=== PATIENT | male | born 1960 ===

== ENCOUNTER 2023-11-01 14:25 | Outpatient (AMB) | payer OTHER, SELFPAY ==
--- NOTE | 2023-11-01 15:01 | HO.NEPHOV_ITS ---
Vital Signs 11/01/23 15:04 Height 6 ft Weight 191 lb 2 oz BMI 25.9 BP 130/80 Blood Pressure Location Rt brachial Position Sitting Pulse 44 L Pulse Source Pulse Oximeter Pulse Oximetry (%) 97 Oxygen Delivery Method Room Air Intake Visit Reasons: CKD/ LVM News Correspondent Required: No Accompanied by: Self / Same As Patient Allergies No Known Allergies Allergy (Verified 11/01/23 15:08) HPI Comments Details: I had the privilege of seeing Curt in follow-up of his hypertension. He checks his blood pressure at home and has been at goal. He does not have any palpitation, syncope, orthostatic symptoms, headache, visual disturbances, chest pain, shortness of breath, paroxysmal nocturnal dyspnea, orthopnea, pedal edema. He does not take excessive salt in the diet and avoid nonsteroidal anti- inflammatory medications. He tries to maintain good hydration. He did not have any new complaints at the time of this office visit. [facility] Medical History (Updated 11/01/23 @ 15:15 by Gurwinder Odell MD) Hypertension Social History (Updated 11/01/23 @ 15:08 by Karina Hough MA) Alcohol intake: never Patient Tobacco Use Status: Never used Tobacco Review of Systems Const All systems reviewed & are unremarkable except as noted in HPI and below Physical Exam Vital Signs: Last Vital Signs Pulse 44 L 11/01/23 15:04 BP 130/80 11/01/23 15:04 Pulse Ox 97 11/01/23 15:04 Oxygen Delivery Method Room Air 11/01/23 15:04 BMI result Body Mass Index 25.9 Const General: comfortable and no acute distress Orientation/consciousness: patient oriented x3 HEENT Head: Yes normocephalic Mouth: Normal oral and palatal mucosa present Eyes EOM: EOMs intact bilaterally Neck Neck: Yes supple Resp Auscultation: clear to auscultation bilaterally Cardio Jugular venous distension: no JVD Rate: regular rate GI Palpation (GI): Soft to palpation Auscultation: normal bowel sounds General: Yes no CVA tenderness Back/Spine/Pelvis Back: no CVA tenderness Skin General skin exam: no rashes or lesions noted Neuro General: patient oriented x3 and moves all extremities Extrem General: Yes no pedal edema Results Reviewed Nephrology Results: No Data to Display Assessment & Plan Assessment & Plan (1) Hypertension: Code(s): I10 - Essential (primary) hypertension Category: Medical Qualifiers: Hypertension type: primary hypertension Qualified Code(s): I10 - Essential (primary) hypertension Plan Curt has longstanding hypertension. His blood pressure is very well controlled on the current dosage of Atenolol and Chlorthalidone. Has no proteinuria, LVH, retinopathy or renal dysfunction. He does not consume excessive sodium in the diet and avoids nonsteroidal anti-inflammatories. He is active and maintains good hydration. He has no history of any cardiac dysfunction. He is compliant with his medications. His electrolytes have been acceptable. I did not make any medication changes today. Follow-up lab work ordered and follow-up appointment given. Answered all questions. Orders: Orders Creatinine 11/01/23 I10 - Essential (primary) hypertension Blood Urea Nitrogen 11/01/23 I10 - Essential (primary) hypertension Electrolytes 11/01/23 I10 - Essential (primary) hypertension Coding Level of Care Code Est Pt Level 4 (05241) Diagnoses Primary hypertension I10 Hypertension type: primary hypertension
[2023-11-01 15:04] VITALS: BP 130/80; PULSE 44; O2SAT 97; BMI 25.9
== END 2023-11-01 15:27 | disposition home or self-care (01) ==
PROVIDERS: PCP Internal Medicine; Visit Provider Internal Medicine Nephrology
DX: I10 Essential (primary) hypertension (principal)
CPT/HCPCS: 99214

== ENCOUNTER → 2023-11-01 14:25 | Outpatient (BNVA) | payer OTHER, SELFPAY | PROVIDERS: PCP Internal Medicine; Visit Provider Internal Medicine Nephrology ==

== ENCOUNTER 2024-08-21 14:54 | Outpatient (AMB) | payer MEDICARE, MEDICAID, SELFPAY ==
--- NOTE | 2024-08-21 14:56 | HO.NEPHOV ---
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 He checks his blood pressure at home and has been at goal. He does not have any palpitation, syncope, orthostatic symptoms, headache, visual disturbances, chest pain, shortness of breath, paroxysmal nocturnal dyspnea, orthopnea, pedal edema. He does not take excessive salt in the diet and avoid nonsteroidal anti-inflammatory medications. He tries to maintain good hydration. His BP has been labile. He did not have any new complaints at the time of this office visit. [facility] Medical History (Updated 11/01/23 @ 15:15 by Gurwinder Odell MD) Hypertension Social History Alcohol intake: never Patient Tobacco Use Status: Never used Tobacco Review of Systems Const All systems reviewed & are unremarkable except as noted in HPI and below Physical Exam Vital Signs: Last Vital Signs Pulse 82 08/21/24 15:01 BP 162/90 H 08/21/24 15:01 Pulse Ox 98 08/21/24 15:01 Oxygen Delivery Method Room Air 08/21/24 15:01 BMI result Body Mass Index 26.0 Const General: comfortable and no acute distress Orientation/consciousness: patient oriented x3 HEENT Head: Yes normocephalic Mouth: Normal oral and palatal mucosa present Eyes EOM: EOMs intact bilaterally Neck Neck: Yes supple Resp Auscultation: clear to auscultation bilaterally Cardio Jugular venous distension: no JVD Rate: regular rate GI Palpation (GI): Soft to palpation Auscultation: normal bowel sounds Skin General skin exam: no rashes or lesions noted Neuro General: patient oriented x3 and moves all extremities Extrem General: Yes no pedal edema Results Reviewed Nephrology Results: No Data to Display Assessment & Plan Assessment & Plan (1) Hypertension: Code(s): I10 - Essential (primary) hypertension Category: Medical Qualifiers: Hypertension type: primary hypertension Qualified Code(s): I10 - Essential (primary) hypertension Plan Curt has longstanding hypertension. His blood pressure is labile on Atenolol and Chlorthalidone. Has no proteinuria, LVH, retinopathy or renal dysfunction. He does not consume excessive sodium in the diet and avoids nonsteroidal anti-inflammatories. He is active and maintains good hydration. He has no history of any cardiac dysfunction. He is compliant with his medications. His electrolytes have been acceptable. He is on K replacement. I asked him to take Atenolol 75 mg daily to keep his BP at goal after watching BP at home for a few more weeks. I did not make any medication changes today. Follow-up lab work ordered and follow-up appointment given. Answered all questions Coding Level of Care Code Est Pt Level 4 (75480) Diagnoses Primary hypertension I10 Hypertension type: primary hypertension
[2024-08-21 15:01] VITALS: BP 162/90; PULSE 82; O2SAT 98; BMI 26.0
--- OUTSIDE RECORDS SUMMARY | 2024-08-21 18:10 | XMS_ITS | Clinical Summary ---
Author Organization [facility] Address [address] [place] [address] Phone Care Team Providers Care Clean Out Driller Helper Name Role Phone Rachelle Mccord MD Primary Care Pr ovider Allergies No known active allergies Medications atenolol (TENORMIN) 50 MG tablet Take 1 tablet by mouth 1 (one) time each day Active chlorthalidone (HYGROTON) 25 MG tablet Take 1 tablet by mouth 1 (one) time each day Active Active Problems Problem Noted Date Diagnosed Date Essential hypertension 10/10/2020 Family History Relation Status Comments Father Mother Social History Tobacco Use Types Packs/Day Years Used Date Smoking Tobacco: Never Smokeless Tobacco: Never Tobacco Cessation:Counseling Given: Not Answered Alcohol Use Standard Drinks/Week Comments No 0 (1 standard drink = 0.6 oz pur e alcohol) Sex and Gender Information Value Date Recorded Sex Assigned at Not on file Legal Sex Male 4:49 PM EST Gender Identity Not on file Sexual Orientation Not on file Last Filed Vital Signs Vital Sign Reading Time Taken Comments Blood Pressure 130/70 11/04/2022 3:54 PM EDT Pulse 72 11/04/2022 3:54 PM EDT Temperature - - Respiratory Rate - - Oxygen Saturation 99% 10/10/2020 3:56 PM EDT Inhaled Oxygen Concentration - - Weight 85 kg (187 lb 6.4 oz) 11/04/2022 3:54 PM EDT Height 182.9 cm (6') 01/15/2020 12:00 PM EDT Body Mass Index 25.42 01/15/2020 12:00 PM EDT Plan of Treatment Health Maintenance Due Date Last Done Comments Pneumococcal Vaccine: 50+ Ye ars (1 of 2 - PCV) 1977 Colorectal Cancer Screening: Annual FOBT 11/03/2007 Colorectal Cancer Screening: Colonoscopy 11/03/2007 Colorectal Cancer Screening: Sigmoidoscopy 11/03/2007 Influenza Vaccine (Season Ended) 2025 Hepatitis B Vaccine Aged Out No longe r eligible based on patient's age to complete this topic Insurance Care Teams Clean Out Driller Helper Relationship Specialty Start Date End Date Rachelle Mccord MD PCP - General 05/19/20
--- OUTSIDE RECORDS SUMMARY | 2024-08-21 18:10 | XMS_ITS | Clinical Summary ---
Author Organization [facility] [address] Address [address] [place] [address] Phone Care Team Providers Care School Occupational Therapist Name Role Phone Rachelle Mccord MD Primary Care Prov ider Allergies No known active allergies Medications omega 3-fhk-gvt-fish oil (Fish OiL) 1,200 (144-216) mg capsule Take by mouth 1 (one) time each day. Active chlorthalidone (HYGROTON) 25 mg tabletIndication s:Essential (primary) hypertension TAKE 1 TABLET BY MOUTH EVERY DAY 90 tablet 1 5 Active atenoloL (TENORMIN) 50 mg tabletIndication s:Essential (primary) hypertension TAKE 1 TABLET BY MOUTH EVERY DAY 90 tablet 1 5 Active KLOR-CON M10 10 mEq CR tablet TAKE 1 TABLET BY MOUTH 1 TIME EACH DAY. 90 tablet 5 Active atenoloL (TENORMIN) 50 mg tabletIndication s:Essential (primary) hypertension TAKE 1 TABLET BY MOUTH EVERY DAY 90 tablet 5 025 Discontinued chlorthalidone (HYGROTON) 25 mg tabletIndication s:Essential (primary) hypertension TAKE 1 TABLET BY MOUTH EVERY DAY 90 tablet 5 025 Discontinued potassium chloride (KLOR-CON M10) 10 mEq CR tablet Take 1 tablet (10 mEq total) by mouth 1 (one) time each day. 30 each 1 5 025 Discontinued Active Problems Problem Noted Date Diagnosed Date Hyperlipidemia 09/23/2021 Overview (05/23/2024): ASCVD 16.8% on 09/23/2021 Chronic renal insufficiency, stage 1 06/30/2020 Essential hypertension 11/15/2016 Encounters Date Type Department Care Team Description 07/03/2024 3:45 PM EST Office Visit Adult [address] [phone] Efrem Conklin PA Essential hypertension (Primary Dx); Mixed hyperlipidemia; History of bilateral cataract extraction 07/03/2024 Telephone Adult [address] [phone] Rachelle Honeycutt MD Request For Order(s) 06/05/[address] [phone] Rachelle Honeycutt MD Pre-op Notes 06/04/2024 3:15 PM EST Consult [address] [phone] Efrem Conklin PA Cataract of both eyes, unspecified cataract type (Primary Dx); Chronic renal insufficiency, stage 1; Essential hypertension 05/29/2024 Telephone Adult [address] [phone] Rachelle Honeycutt MD Pre-operative Clearance from Last 3 Months Immunizations Name Administration Dates Next Due Influenza Quadravalent, MDCK , 0.5ml, preservative free (Flucelvax) 6mo and older 04/25/2022 Influenza trivalent, 0.5mL ( Fluzone High-dose) 65yo and older 06/10/2024 Pfizer (ages 12 & older) [place] S-CoV-2 COVID-19, mRNA, LNP-S, betsey-sucrose, preservative free 11/07/2021 Pfizer SARS-CoV-2 COVID-19, mRNA, LNP-S, preservative free 11/07/2021 Tdap Tetanus diptheria acell ular pertussis (Boostrix; Adacel) 7yo and older 11/04/2017 Zoster recombinant (Shingrix) 19yo and older 07/2023,03/11/2023 Surgical History Surgery Date Site/Laterality Comments OTHER SURGICAL HISTORY PROCEDURE: DENIES PREVIOUS SURGERY Medical History Medical History Date Comments Essential hypertension 11/15/2016 DX:Essent ial hypertension Hyperlipidemia 09/23/2021 DX:Hyperlipidemi a; COMMENT: ASCVD 16.8% on 09/23/2021 Family History Medical History Relation Name Comments Anemia Mother Relation Name Status Comments Father 80. never went to the doctor. unexpectedly one morning Maternal Grandfather Maternal Grandmother Mother Paternal Grandfather Paternal Grandmother Sister 1 Alive Sister 2 Alive Social History Tobacco Use Types Packs/Day Years Used Date Smoking Tobacco: Never Smokeless Tobacco: Never Tobacco Cessation:Counseling Given: Not Answered Alcohol Use Standard Drinks/Week Comments Yes 0 (1 standard drink = 0.6 oz pur e alcohol) Sex and Gender Information Value Date Recorded Sex Assigned at Not on file Legal Sex Male 6:05 PM EST Gender Identity Not on file Sexual Orientation Not on file Obstetrics History Last Filed Vital Signs Vital Sign Reading Time Taken Comments Blood Pressure 153/77 07/03/2024 3:41 PM EST Pulse 76 07/03/2024 3:41 PM EST Temperature 37 ??C (98.6 ??F) 07/03/2024 3:41 PM EST Respiratory Rate - - Oxygen Saturation - - Inhaled Oxygen Concentration - - Weight 85.7 kg (189 lb) 07/03/2024 3:41 PM EST Height 182.9 cm (6') 07/03/2024 3:41 PM EST Body Mass Index 25.63 07/03/2024 3:41 PM EST Plan of Treatment Upcoming Encounters Date Type Department Care Team (Late st Contact Info) Description 08/31/2024 2:30 PM EDT Office Visit Adult Medicine [facility] [address] [place] [address] Efrem Conklin PA [address] [place] [address] Health Maintenance Due Date Last Done Comments Pneumococcal Vaccine: 50+ Years (1 of 1 - PCV) 2008 Colorectal Cancer Screening: Colonoscopy 04/10/2022 Depression Screening 04/10/2022 Hepatitis C Screening 04/10/2022 Medicare Annual Wellness Visit 04/10/2022 Social Influencers of Health Screening 04/10/2022 Falls Risk Assessment 11/03/2023 Hypertension/CHF/CAD Annual BMP Blood Test 07/20/2025 07/20/2024, 07/05/2024, 04/27/2023 DTaP,Tdap,and Td Vaccines (2 - Td or Tdap) 11/05/2027 11/04/2017 Cholesterol Screening (Lipid Panel) 07/05/2029 07/05/2024, 10/27/2022 RSV Immunization Adult Patients (1 - 1-dose 75+ series) 2033 Zoster Vaccines Completed 05/11/2023, 03/11/2023 COVID-19 Vaccine Completed 06/10/2024, , 11/07/2021, Additional history exists Influenza Vaccine Completed 06/10/2024, 04/25/2022 HIB Vaccines Aged Out No longer eligi ble based on patient's age to complete this topic HPV Vaccines Aged Out No longer eligi ble based on patient's age to complete this topic Hepatitis A Vaccines Aged Out No long er eligible based on patient's age to complete this topic Hepatitis B Vaccines Aged Out No long er eligible based on patient's age to complete this topic IPV Vaccines Aged Out No longer eligi ble based on patient's age to complete this topic MMR Vaccines Aged Out No longer eligi ble based on patient's age to complete this topic Meningococcal ACWY Vaccine Aged Out N o longer eligible based on patient's age to complete this topic Meningococcal B Vaccine Aged Out No l onger eligible based on patient's age to complete this topic Pneumococcal Vaccine: Pediatrics (0 to 5 Years) and At-Risk Patients (6 to 64 Years) Aged Out No longer eligible based on patient's age to complete this topic RSV Immunization Patients Under 20 months Aged Out No longer eligible based on patient's age to complete this topic Varicella Vaccines Aged Out No longer eligible based on patient's age to complete this topic Procedures Procedure Name Priority Date/Time Associated Diagnosis Comments RENAL FUNCTION PANEL Routine 07/20/2024 12:18 PM EDT Essential hypertension COMPREHENSIVE METABOLIC PANEL Routine 07/05/2024 9:53 AM EST Mixed hyperlipidemia Essential hypertension LIPID PANEL WITH REFLEX TO DIRECT LDL Routine 07/05/2024 9:53 AM EST Mixed hyperlipidemia Essential hypertension from Last 3 Months Results * (ABNORMAL) Renal function panel (07/20/2024 12:18 PM EDT) Sodium 133 133 - 145 mmol/L LAB CHEMISTRY METHOD 07/20/2024 2:58 PM [facility] Potassium 3.2(L) 3.5 - 5.5 mmol/L LAB CHEMISTRY METHOD 07/20/2024 2:58 PM [facility] Chloride 99 96 - 110 mmol/L LAB CHEMISTRY METHOD 07/20/2024 2:58 PM [facility] CO2 23 21 - 32 mmol/L LAB CHEMISTRY METHOD 07/20/2024 2:58 PM [facility] Anion Gap 11 3 - 11 LAB CHEMISTRY METHOD 07/20/2024 2:58 PM [facility] Glucose 93 70 - 100 mg/dL LAB CHEMISTRY METHOD 07/20/2024 2:58 PM [facility] BUN 21 5 - 25 mg/dL LAB CHEMISTRY METHOD 07/20/2024 2:58 PM [facility] Creatinine 1.22 0.70 - 1.30 mg/dL LAB CHEMISTRY METHOD 07/20/2024 2:58 PM [facility] eGFR 66 >=60 mL/min/1. 73m2 LAB CHEMISTRY METHOD 07/20/2024 2:58 PM [facility] Comment:Calculation based on the??Chronic Kidney Disease Epidemiology Collaboration (CKD-EPI) equation refit??without adjustment for race. BUN/Creatinine Ratio 17.2 LAB CHEMISTRY METHOD 07/20/2024 2:58 PM [facility] Albumin 3.7 3.2 - 5.0 g/dL LAB CHEMISTRY METHOD 07/20/2024 2:58 PM [facility] Calcium 9.0 8.5 - 10.5 mg/dL LAB CHEMISTRY METHOD 07/20/2024 2:58 PM EDT [facility] Phosphorus 2.7 2.5 - 4.5 mg/dL LAB CHEMISTRY METHOD 07/20/2024 2:58 PM EDT [facility] Blood Venous blood specimen / Unknown Venipuncture / Unknown 07/20/2024 12:18 PM EDT 07/20/2024 12:18 PM EDT us Efrem DUNCAN LAB BLOOD ORDERABLES Final Res ult [facility] [address] [place] [address], [place] [phone] * (ABNORMAL) Lipid panel with reflex to direct LDL (07/05/2024 9:53 AM EST) Cholesterol 196 0 - 200 mg/dL LAB CHEMISTRY METHOD 07/05/2024 1:[address] [facility] Triglycerides 130 0 - 150 mg/dL LAB CHEMISTRY METHOD 07/05/2024 1:15 PM EST [facility] HDL 47 >=40 mg/dL LAB CHEMISTRY METHOD 07/05/2024 1:15 PM EST [facility] LDL Calculated 123(H) 0 - 100 mg/dL LAB CHEMISTRY METHOD 07/05/2024 1:[address] [facility] VLDL Cholesterol Osorio 26 mg/dL LAB CHEMISTRY METHOD 07/05/2024 1:15 PM EST [facility] Non HDL Chol. (LDL+VLDL) 149(H) <145 mg/dL LAB CHEMISTRY METHOD 07/05/2024 1:15 PM EST [facility] Chol/HDL Ratio 4.2 0.0 - 4.4 LAB CHEMISTRY METHOD 07/05/2024 1:[address] [facility] Blood Venous blood specimen / Unknown Venipuncture / Unknown 07/05/2024 9:53 AM EST 07/05/2024 9:53 AM EST us Efrem DUNCAN LAB BLOOD ORDERABLES Final Res ult [facility] [address] [place] [address], [place] [phone] * (ABNORMAL) Comprehensive metabolic panel (07/05/2024 9:53 AM EST) Sodium 130(L) 133 - 145 mmol/L LAB CHEMISTRY METHOD 07/05/2024 1:15 PM EST [facility] Potassium 4.0 3.5 - 5.5 mmol/L LAB CHEMISTRY METHOD 07/05/2024 1:[address] [facility] Chloride 95(L) 96 - 110 mmol/L LAB CHEMISTRY METHOD 07/05/2024 1:[address] [facility] CO2 28 21 - 32 mmol/L LAB CHEMISTRY METHOD 07/05/2024 1:[address] [facility] Anion Gap 7 3 - 11 LAB CHEMISTRY METHOD 07/05/2024 1:[address] [facility] Glucose 101(H) 70 - 100 mg/dL LAB CHEMISTRY METHOD 07/05/2024 1:[address] [facility] BUN 18 5 - 25 mg/dL LAB CHEMISTRY METHOD 07/05/2024 1:[address] [facility] Creatinine 1.17 0.70 - 1.30 mg/dL LAB CHEMISTRY METHOD 07/05/2024 1:[address] [facility] eGFR 69 >=60 mL/min/1. 73m2 LAB CHEMISTRY METHOD 07/05/2024 1:[address] [facility] Comment:Calculation based on the??Chronic Kidney Disease Epidemiology Collaboration (CKD-EPI) equation refit??without adjustment for race. BUN/Creatinine Ratio 15.4 LAB CHEMISTRY METHOD 07/05/2024 1:[address] [facility] Calcium 9.1 8.5 - 10.5 mg/dL LAB CHEMISTRY METHOD 07/05/2024 1:[address] [facility] AST (SGOT) 16 10 - 42 unit/L LAB CHEMISTRY METHOD 07/05/2024 1:[address] [facility] ALT (SGPT) 21 10 - 60 unit/L LAB CHEMISTRY METHOD 07/05/2024 1:[address] [facility] Alkaline Phosphatase 72 42 - 121 unit/L LAB CHEMISTRY METHOD 07/05/2024 1:[address] [facility] Total Protein 7.8 6.0 - 8.0 g/dL LAB CHEMISTRY METHOD 07/05/2024 1:[address] [facility] Albumin 3.7 3.2 - 5.0 g/dL LAB CHEMISTRY METHOD 07/05/2024 1:[address] [facility] Total Bilirubin 1.0 0.0 - 1.4 mg/dL LAB CHEMISTRY METHOD 07/05/2024 1:[address] [facility] Blood Venous blood specimen / Unknown Venipuncture / Unknown 07/05/2024 9:53 AM EST 07/05/2024 9:53 AM EST us Efrem DUNCAN LAB BLOOD ORDERABLES Final Res ult [facility] [address] [place] [address], from Last 3 Months Insurance [facility] MEDICARE MEDICARE BLUE [employer]OSS - [place] MEDICARE ADVANTAGE Care Teams School Occupational Therapist Relationship Specialty Start Date End Date Rachelle Mccord MD [address] [place] [phone] PCP - General Internal Medicine 11/02/16
== END 2024-08-21 17:04 | disposition home or self-care (01) ==
LOC: HO.HKAS 14:54
PROVIDERS: PCP Internal Medicine; Visit Provider Internal Medicine Nephrology
DX: I10 Essential (primary) hypertension (principal)
CPT/HCPCS: 99214

== ENCOUNTER → 2024-08-21 14:54 | Outpatient (BNVA) | payer MEDICARE, MEDICAID, SELFPAY | PROVIDERS: PCP Internal Medicine; Visit Provider Internal Medicine Nephrology | DX: I10 Essential (primary) hypertension (principal) | CPT/HCPCS: 99212 ==